=== PATIENT | female | born 1955 | race Caucasian/White ===

== ENCOUNTER → 2017-05-10 | Outpatient (CLI) | payer BC ==
[~2017-05-10] MED LIST: ASPEC81 PO; CALCTAB5 PO; EFFSR150 PO; ERGO1CAP35 PO; FLNIN NAE; FRRG27 PO; MULT-506 PO; OMEG10007 PO; PROBIOTIC; SYN100 PO
--- NOTE | 2017-05-10 12:45 | MAMMOGRAPHY REPORT ---
BILATERAL DIGITAL SCREENING MAMMOGRAM WITH CAD: 05/10/2017 CLINICAL HISTORY: Routine screening. TECHNIQUE: Current study was also evaluated with a Computer Aided Detection (CAD) system. Bilateral CC and MLO views were obtained. COMPARISON: Comparison is made to exams dated: 05/09/2016 mammogram, 04/19/2015 mammogram, 12/26/2010 ma mmogram, 12/21/2009 mammogram, 08/28/2005 mammogram, and 04/26/2015 mammogram - [facility] nter. BREAST COMPOSITION: The tissue of both breasts is heterogeneously dense, which may obscure small mas ses. FINDINGS: No suspicious masses, calcifications, or areas of architectural distortion are noted in ei ther breast. There has been no significant interval change compared to prior exams. Linear scar alissa ers denote scars on bilateral breasts. Bilateral benign-appearing calcifications are not significant ly changed. IMPRESSION: ACR BI-RADS CATEGORY 2: BENIGN There is no mammographic evidence of malignancy. A 1 year screening mammogram is recommended. The pa tient will receive written notification of the results. Approximately 10% of breast cancers are not detected with mammography. A negative mammographic report should not delay biopsy if a clinically suggestive mass is present. Bethany Sotelo M.D. /:05/10/2017 11:49:38 Casket Upholsterer: Ben CAMILO)(Kristin), [facility] letter sent: Normal 1/2 BI-RADS Code: ACR BI-RADS Category 2: Benign
== END | disposition home or self-care (01) ==
LOC: C.MAMM 10:30
PROVIDERS: ATTEND Obstetrics & Gynecology
DX: Z12.31 Encounter for screening mammogram for malignant neoplasm of breast (principal)

== ENCOUNTER → 2017-08-03 | Outpatient (CLI) | payer BC ==
[2017-08-03 09:06] LABS: BASO % 0.4 %; BASO ABS # 0.02 K/uL (0-0.2); COMPLETE YES; EOS % 2.1 %; IG% 0.2 %; LYMPH % 29.5 %; LYMPH ABS # 1.68 K/uL (1.2-3.4); MEAN CELL VOLUME 90.3 fL (80-100); MEAN CORPUSCULAR HEMOGLOBIN 30.2 pg (25-34); MEAN CORPUSCULAR HGB CONC 33.5 g/dl (32-36); MEAN PLATELET VOLUME 9.6 fL (7.4-10.4); MONO % 6.7 %; NEUT % 61.1 %; PLATELET COUNT 242 K/uL (130-400); RED BLOOD COUNT 4.43 M/uL (4.2-5.4)
[2017-08-03 09:33] LABS: BLOOD UREA NITROGEN 15 mg/dl (7-18); GLUCOSE 94 mg/dl (70-99)
[2017-08-03 09:34] LABS: ALT/SGPT 25 U/L (12-78); AST/SGOT 19 U/L (15-37); BUN/CREATININE RATIO 19.6 (10-20); CALCIUM 9.3 mg/dl (8.5-10.1); CARBON DIOXIDE 30 mmol/L (21-32); CHLORIDE 106 mmol/L (98-107); CREATININE 0.78 mg/dl (0.60-1.20); POTASSIUM 4.2 mmol/L (3.5-5.1); SODIUM 140 mmol/L (136-145); URIC ACID 6.1 mg/dl (2.6-7.2)
[2017-08-03 09:37] LABS: CHOLESTEROL 191 mg/dl (0-200); CHOLESTEROL/HDL RATIO 3.9; FERRITIN 123.9 ng/ml (8.0-388.0); HDL CHOLESTEROL 49 mg/dl; LDL CHOLESTEROL CALCULATED 116 mg/dl; TRIGLYCERIDES 129 mg/dl (0-150); VERY LOW DENSITY LIPOPROT CALC 26 mg/dl
== END | disposition home or self-care (01) ==
LOC: C.LAB 08:20
DX: E79.0 Hyperuricemia without signs of inflammatory arthritis and tophaceous disease (principal); I10 Essential (primary) hypertension; E61.1 Iron deficiency; E55.9 Vitamin D deficiency, unspecified

== ENCOUNTER → 2017-10-02 | Outpatient (CLI) | payer BC | END | disposition home or self-care (01) | LOC: C.PAPS 12:06 | PROVIDERS: ATTEND Obstetrics & Gynecology | DX: Z01.419 Encounter for gynecological examination (general) (routine) without abnormal findings (principal) ==

== ENCOUNTER → 2017-11-23 | Outpatient (CLI) | payer BC | END | disposition home or self-care (01) | LOC: C.LAB 09:16 | DX: R53.83 Other fatigue (principal); E03.9 Hypothyroidism, unspecified; E55.9 Vitamin D deficiency, unspecified ==